=== PATIENT | male | born 1980 | race Caucasian/White ===

== ENCOUNTER 2019-03-24 09:38 | Emergency (ER) | payer OTHER ==
[~2019-03-24] VITALS: Ht 180.3 cm; Wt 104.3 kg
[~2019-03-24 09:38] MED LIST: AMOCLA875 PO; HYDACE5 PO; IBUP200 PO; IBUP800 PO; NAPR500 PO; OXYACE5T PO; PENVK250 PO; PENVK500 PO
[2019-03-24] MEDS ORDERED: Bactrim Ds Tab1 EACH PO (10:24)
== END 2019-03-24 10:28 | disposition home or self-care (01) ==
LOC: ER 09:38
DX: L02.212 Cutaneous abscess of back [any part, except buttock and flank] (principal); F17.200 Nicotine dependence, unspecified, uncomplicated
CPT/HCPCS: 10060; 99282-25

== ENCOUNTER → 2021-07-04 | Outpatient (CLI) | payer OTHER ==
[~2021-07-04] MED LIST changes: +Bactrim Ds Tab1 EACH PO
== END | disposition home or self-care (01) ==
LOC: LAB 13:57 → LAB SHORT 13:57
DX: J06.9 Acute upper respiratory infection, unspecified (principal)
CPT/HCPCS: 87081; 87147

== ENCOUNTER 2024-03-11 13:01 | Emergency (ER) | payer OTHER ==
[~2024-03-11] VITALS: Ht 180.3 cm; Wt 83.9 kg
[2024-03-11] MEDS ORDERED: Methadone HCL 10 MG TAB PO ONE (14:05)
[2024-03-11 14:08] VITALS: BP 119/89
[2024-03-11] MEDS ORDERED: METH5 PO (14:10)
== END 2024-03-11 14:23 | disposition home or self-care (01) ==
LOC: ER 13:01
DX: Z76.0 Encounter for issue of repeat prescription (principal); F17.200 Nicotine dependence, unspecified, uncomplicated
CPT/HCPCS: 99281; A9270

== ENCOUNTER 2024-11-07 16:17 | Emergency (ER) | payer OTHER ==
[~2024-11-07] VITALS: Ht 180.3 cm; Wt 83.9 kg
[~2024-11-07 16:17] MED LIST changes: +METH5 PO
[2024-11-07 17:30] VITALS: BP 140/90
[2024-11-07] MEDS ORDERED: Methadone HCL 10 MG TAB PO ONE (18:15)
== END 2024-11-07 18:25 | disposition home or self-care (01) ==
LOC: ER 16:17
DX: F11.90 Opioid use, unspecified, uncomplicated (principal); Z76.0 Encounter for issue of repeat prescription; F17.200 Nicotine dependence, unspecified, uncomplicated
CPT/HCPCS: 99281; A9270

== ENCOUNTER 2024-11-08 21:41 | Emergency (ER) | payer OTHER ==
[~2024-11-08] VITALS: Ht 180.3 cm; Wt 83.9 kg
[2024-11-08 22:23] VITALS: BP 149/91
[2024-11-08] MEDS ORDERED: Methadone HCL 10 MG TAB PO ONE (22:25)
== END 2024-11-08 22:48 | disposition home or self-care (01) ==
LOC: ER 21:41
DX: Z76.89 Persons encountering health services in other specified circumstances (principal); F17.200 Nicotine dependence, unspecified, uncomplicated; Z79.899 Other long term (current) drug therapy
CPT/HCPCS: 99281; A9270

== ENCOUNTER 2025-02-05 20:34 | Emergency (ER) | payer OTHER ==
[~2025-02-05] VITALS: Ht 177.8 cm; Wt 77.1 kg
== END 2025-02-05 20:44 | disposition home or self-care (01) ==
LOC: ER 20:34
DX: F11.90 Opioid use, unspecified, uncomplicated (principal); F17.200 Nicotine dependence, unspecified, uncomplicated; Z79.899 Other long term (current) drug therapy; Z53.21 Procedure and treatment not carried out due to patient leaving prior to being seen by health care provider
CPT/HCPCS: 99281